=== PATIENT | male | born 1955 ===

== ENCOUNTER 2017-01-27 16:26 | Emergency (ER) | payer OTHER ==
[2017-01-27 16:26] VITALS: BMI 23.5
[2017-01-27 16:33] VITALS: BP 114/77; PULSE 67; RESP 20; TEMP 97.4; O2SAT 98
--- NOTE | 2017-01-27 16:53 | C.PDOC ---
History Of Present Illness 61 y/o male presents to ED for evaluation of itchy rash to face gradually developed 2 weeks ago. Patient denies new medication use, exposure to allergen, denies previous hx of allergy or skin ds, denies recent travel, fever, throat pain/tightness/swelling, drooling, dysphagia, dyspnea, sob, wheezing, palpitation or any other complaints at this time. Time Seen by Provider: 01/27/17 16:44 Chief Complaint (Nursing): Abnormal Skin Integrity History Per: Patient History/Exam Limitations: no limitations Onset/Duration Of Symptoms: Days Current Symptoms Are (Timing): Still Present Location Of Injury: Anterior: Face Quality Of Symptoms: Itching Past Medical History Reviewed: Historical Data, Nursing Documentation, Vital Signs Vital Signs: Last Vital Signs Temp 97.4 F L 01/27/17 16:30 Pulse 67 01/27/17 16:30 Resp 20 01/27/17 16:30 BP 114/77 01/27/17 16:30 Pulse Ox 98 01/27/17 17:02 - Medical History PMH: Hypercholesterolemia Surgical History: No Surg Hx Family History: States: No Known Family Hx - Social History Hx Alcohol Use: No Hx Substance Use: No - Immunization History Hx Tetanus Toxoid Vaccination: No Hx Influenza Vaccination: No Hx Pneumococcal Vaccination: No Review Of Systems Constitutional: Negative for: Fever, Chills Cardiovascular: Negative for: Chest Pain Respiratory: Negative for: Cough, Shortness of Breath Gastrointestinal: Negative for: Nausea, Vomiting Skin: Positive for: Rash Physical Exam - Physical Exam Appears: Non-toxic, No Acute Distress Skin: Warm, Dry, Rash (Dry erythematous rash excoriation over Glabella and nasal ala bilaterally) Head: Normacephalic Eye(s): bilateral: PERRL Nose: No Flaring, No Discharge Oral Mucosa: Moist, No Drooling, No Trismus Tongue: Normal Appearing, No Swelling Lips: Normal Appearing, No Swelling Throat: No Erythema, No Exudate, No Drooling Chest: Symmetrical Cardiovascular: Rhythm Regular, No JVD Respiratory: No Decreased Breath Sounds, No Accessory Muscle Use, No Rales, No Rhonchi, No Stridor, No Wheezing Extremity: Normal ROM, No Pedal Edema Neurological/Psych: Oriented x3, Normal Speech ED Course And Treatment O2 Sat by Pulse Oximetry: 98 (RA) Pulse Ox Interpretation: Normal Progress Note: On re-evaluation, pt is afebrile, hemodynamicaly stable. Non- toxic. Tolerate PO well in ED. PusleOx 98% RA. ENT: no acute findings. uvula midline, no edema. Neck: Supple, (-) JVD. Lungs: CTA B/L, BS equal B/L.,. Neuorlogicaly intact. pt has clinical findings c/w facial pruritic rash r/o contact dermatitis vs rosacea vs SLE. Pt advised and ref. to F/u with PMD, Derm in 2-3 days for re-eavl. return to ED if any worsening or new changes. Disposition Counseled Patient/Family Regarding: Diagnosis, Need For Followup, Rx Given - Disposition Referrals: [facility] at [facility] [Outside] Disposition: HOME/ ROUTINE Disposition Time: 16:50 Condition: STABLE Additional Instructions: Follow up with PMD, Dermatology in 2-3 days for re-evaluation. Return to ED if any worsening or new changes. 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 - Scribe Statement The provider has reviewed the documentation as recorded by the Jocy Fernandez All medical record entries made by the Jocy were at my direction and personally dictated by me. I have reviewed the chart and agree that the record accurately reflects my personal performance of the history, physical exam, medical decision making, and the department course for this patient. I have also personally directed, reviewed, and agree with the discharge instructions and disposition.
== END 2017-01-27 17:19 | disposition home or self-care (01) ==
LOC: C.ER 16:26
DX: L25.9 Unspecified contact dermatitis, unspecified cause (principal); L71.9 Rosacea, unspecified

== ENCOUNTER 2017-07-05 09:51 | Emergency (ER) | payer OTHER ==
[2017-07-05 09:52] VITALS: BMI 24.2
[2017-07-05 10:08] VITALS: RESP 18; TEMP 98.5
--- NOTE | 2017-07-05 11:12 | C.PDOC ---
History Of Present Illness 61yo male with history of enlarged prostate, gout and high cholesterol, presents to the ED for evaluation of rectal itch, ongoing for the past 45 days. Patient was evaluated in the clinic 1 month ago and states due to a language barrier, he might not have received medication. Patient states he has been taking over the counter medication for pinworms with no relief; patient states when he was in [facility], he was taking medications for his pinworms as well. He also has a secondary complaints of left elbow pain after he injured it 3 months ago at work. He states the pain initially resolved but returns with strenuous use of his left arm. He denies any weakness, numbness or tingling of his arm. Patient has no other medical complaints. Time Seen by Provider: 07/05/17 10:10 Chief Complaint (Nursing): Upper Extremity Problem/Injury History Per: Patient History/Exam Limitations: no limitations Onset/Duration Of Symptoms: Persistent Additional History Per: Patient Past Medical History Reviewed: Historical Data, Nursing Documentation, Vital Signs Vital Signs: Last Vital Signs Temp 98.5 F 07/05/17 10:05 Pulse 64 07/05/17 11:30 Resp 18 07/05/17 11:30 BP 123/73 07/05/17 11:30 Pulse Ox 98 07/05/17 11:30 - Medical History PMH: Hypercholesterolemia Surgical History: No Surg Hx Family History: States: No Known Family Hx - Social History Hx Alcohol Use: No Hx Substance Use: No - Immunization History Hx Tetanus Toxoid Vaccination: No Hx Influenza Vaccination: No Hx Pneumococcal Vaccination: No Review Of Systems Except As Marked, All Systems Reviewed And Found Negative. Constitutional: Negative for: Fever, Chills Gastrointestinal: Positive for: Rectal Pain (rectal itching) Musculoskeletal: Positive for: Arm Pain (left elbow) Physical Exam - Physical Exam Appears: Non-toxic, No Acute Distress Skin: Normal Color Head: Normacephalic Eye(s): bilateral: Normal Inspection Neck: Normal ROM, Supple Chest: Symmetrical Cardiovascular: Rhythm Regular Respiratory: Normal Breath Sounds Rectal: Other (exchoriated tissue and several fissures to anal ridge) Extremity: Normal ROM, No Tenderness, No Deformity, No Swelling, Other (bony protrusions noted to left elbow, no crepidus) Neurological/Psych: Oriented x3 ED Course And Treatment O2 Sat by Pulse Oximetry: 96 (RA) Pulse Ox Interpretation: Normal Medical Decision Making Medical Decision Making: Impression: Left elbow pain, rectal itch Plan: -- Motrin 600 mg PO -- Tylenol 975 mg PO Patient states his rectal itch is present all day so his current presentation is not due to pin worms. Patient's left elbow placed in tomasz wrap and is stable for discharge home. Disposition Counseled Patient/Family Regarding: Diagnosis, Need For Followup, Rx Given - Disposition Referrals: [facility] at [facility] [Outside] Disposition: HOME/ ROUTINE Disposition Time: 11:27 Condition: STABLE Prescriptions: Mebendazole [Emverm] 100 mg PO ONCE #2 tab.chew Mupirocin 2% Ointment [Bactroban Ointment] 1 appl TP TID #1 tube Instructions: Anal Fissure (DC) Forms: Gen Discharge Inst Uruguayan, [facility] (Uruguayan), Work Excuse - POA Present On Arrival: None - Clinical Impression Clinical Impression: Chronic anal fissure, Pinworms - Scribe Statement The provider has reviewed the documentation as recorded by the Scribe (June Taylor) Provider Attestation: All medical record entries made by the Scribe were at my direction and personally dictated by me. I have reviewed the chart and agree that the record accurately reflects my personal performance of the history, physical exam, medical decision making, and the department course for this patient. I have also personally directed, reviewed, and agree with the discharge instructions and disposition.
[2017-07-05 11:30] VITALS: BP 123/73; PULSE 64
[2017-07-05 11:35] VITALS: O2SAT 96
== END 2017-07-05 11:39 | disposition home or self-care (01) ==
LOC: C.ER 09:51
DX: K60.1 Chronic anal fissure (principal); B80 Enterobiasis

== ENCOUNTER 2018-08-15 13:32 | Emergency (ER) | payer OTHER ==
[2018-08-15 13:32] VITALS: BMI 24.2
--- NOTE | 2018-08-15 14:43 | C.PDOC ---
History Of Present Illness 62-year-old male presents to the ED for evaluation of nasal congestion and drainage of congestion into his throat for one week. Patient reports history of seasonal allergies. He states that last year, he was prescribed Claritin and a steroid nasal spray, which has been using for the past week without any relief. Patient denies fever, chills, cough, chest pain, shortness of breath, ear pain, rashes. Time Seen by Provider: 08/15/18 14:13 Chief Complaint (Nursing): Cough, Cold, Congestion History Per: Patient History/Exam Limitations: None Onset/Duration Of Symptoms: Days Current Symptoms Are (Timing): Still Present Symptoms Have Been: Continuous Severity: Mild Past Medical History Reviewed: Historical Data, Nursing Documentation, Vital Signs Vital Signs: Last Vital Signs Temp 97.9 F 08/15/18 13:53 Pulse 74 08/15/18 13:53 Resp 17 08/15/18 13:53 BP 134/83 08/15/18 13:53 Pulse Ox 96 08/15/18 13:53 Primary Care Provider: Non [facility] Provider, - Medical History PMH: Hypercholesterolemia Surgical History: No Surg Hx Family History: States: No Known Family Hx - Social History Hx Alcohol Use: No Hx Substance Use: No - Immunization History Hx Tetanus Toxoid Vaccination: No Hx Influenza Vaccination: No Hx Pneumococcal Vaccination: No Review Of Systems Constitutional: Negative for: Fever, Chills ENT: Positive for: Nose Congestion. Negative for: Ear Pain Cardiovascular: Negative for: Chest Pain Respiratory: Negative for: Cough, Shortness of Breath Skin: Negative for: Rash Physical Exam - Physical Exam Appears: Well, Non-toxic, No Acute Distress, Other (speaking in full sentences) Skin: Normal Color, Warm, Dry Eye(s): bilateral: Normal Inspection Ear(s): Bilateral: Normal Nose: Other (boggy-appearing tubinates in bilateral nares) Oral Mucosa: Moist Throat: Normal, No Erythema, No Exudate Neck: Supple Cardiovascular: Rhythm Regular Respiratory: Normal Breath Sounds, No Rales, No Rhonchi, No Wheezing Extremity: Normal ROM Neurological/Psych: Oriented x3 ED Course And Treatment O2 Sat by Pulse Oximetry: 96 (on RA) Pulse Ox Interpretation: Normal Progress Note: Accucheck ordered and reviewed because patient mentioned he felt light-headed sometimes - was WNL. Rxs for Zyrtec and nasonex given. Patient instructed to follow up with PMD/clinic in 1-2 days, and he understands he should return to ED if symptoms worsen. Disposition Counseled Patient/Family Regarding: Diagnosis, Need For Followup, Rx Given - Disposition Referrals: [facility] at [facility] [Outside] Disposition: HOME/ ROUTINE Disposition Time: 14:45 Condition: STABLE Additional Instructions: FOLLOW UP WITH YOUR DOCTOR/CLINIC IN 1-2 DAYS USE MEDICATIONS DIRECTED/NEEDED RETURN TO EMERGENCY ROOM IF YOUR SYMPTOMS BECOME WORSE SEGUIR CON ADRIAN MDICO / CLNICA EN 1-2 JONES UTILICE MEDICAMENTOS SEGN DIRIGIDO / NECESARIO VUELVA A LA OSMAN DE EMERGENCIA SI BETTYE SNTOMAS SE HACEN PEOR Prescriptions: Cetirizine HCl [Zyrtec] 10 mg PO DAILY PRN #15 capsule PRN Reason: Nasal Congestion Mometasone Furoate [Nasonex] 0.05 mg NS DAILY #1 bottle Instructions: Seasonal Allergies (DC) Forms: [employer] (Khmer) Print Language: KHMER - Clinical Impression Clinical Impression: Seasonal allergies - 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 - Scribe Statement The provider has reviewed the documentation as recorded by the Scribe (Izabela Park) Provider Attestation: All medical record entries made by the Scribe were at my direction and personally dictated by me. I have reviewed the chart and agree that the record accurately reflects my personal performance of the history, physical exam, medical decision making, and the department course for this patient. I have also personally directed, reviewed, and agree with the discharge instructions and disposition.
[2018-08-15 15:27] VITALS: BP 132/77; PULSE 75; RESP 18; TEMP 98.4
[2018-08-16 00:22] VITALS: O2SAT 96
== END 2018-08-15 15:15 | disposition home or self-care (01) ==
LOC: C.ER 13:32
DX: J30.2 Other seasonal allergic rhinitis (principal); E78.00 Pure hypercholesterolemia, unspecified